=== PATIENT | male | born 1985 | race Caucasian/White ===

== ENCOUNTER 2018-11-19 11:57 | Emergency (ER) | payer OTHER ==
[2018-11-19 12:31] VITALS: RESP 18
[2018-11-19] MEDS ORDERED: SODIUM CHLORIDE 0.9% 1,000 ML IV STA ×2 (13:05)
[2018-11-19] MEDS ORDERED: IBUPROFEN 600 MG TAB PO STA (13:05)
[2018-11-19] MEDS ORDERED: ACETAMINOPHEN TAB 500 MG TAB PO STA (13:05)
--- NOTE | 2018-11-19 13:21 | ED ---
Syncope HPI - General Chief Complaint: Syncope Stated Complaint: Abcess on arm/syncope Time Seen by Provider: 11/19/18 12:48 Source: patient, RN notes reviewed, old records reviewed Mode of arrival: wheelchair Limitations: no limitations - History of Present Illness Initial Comments: This is a 33-year-old male the ER for evaluation presents today for evaluation regards to near syncopal event while in the medication line. The patient does have history of IV drug abuse as a patient from [facility]. Patient not currently on any illicit drugs denies drug or alcohol abuse. Patient complaining for multiple complaints today. Had the near syncopal event while lying felt lightheaded very dizzy very weak using pass out. Very diaphoretic and warm. Patient also complains of left forearm pain pain and tenderness to the left anterior aspect of his left forearm swelling and edema with surrounding redness. Denying specific fever. Again he does have history of IV drug abuse but denies injection in that site MD Complaint: felt faint, almost passed out -: hour(s) Prodromal Symptoms: lightheaded, diaphoresis -: second(s) Witnessed: yes - by bystander Injuries Sustained Associated with Event: None Current Symptoms: lightheaded, weakness Context: standing up, illicit drug use Treatments Prior to Arrival: none - Related Data Home Medications Medication Instructions Recorded Confirmed Acetaminophen [Tylenol 8 Hour] 650 mg PO Q4H PRN 11/19/18 11/19/18 Calcium/Magnesium 1 tab PO TID PRN 11/19/18 11/19/18 Chlorpheniramine Maleate 4 mg PO Q4H PRN 11/19/18 11/19/18 [Chlor-Trimeton] Ibuprofen [Motrin] 600 mg PO Q6H PRN 11/19/18 11/19/18 Mirtazapine [Remeron] 30 mg PO HS 11/19/18 11/19/18 Multivitamins, Thera [Multivitamin 1 tab PO DAILY 11/19/18 11/19/18 (formulary)] Ondansetron HCl [Zofran Oral Soln] 4 mg IM Q6H PRN 11/19/18 11/19/18 Ondansetron HCl [Zofran] 8 mg PO Q6H PRN 11/19/18 11/19/18 Thiamine [Vitamin B-1] 100 mg PO DAILY 11/19/18 11/19/18 cloNIDine HCL [Catapres] 0.1 mg PO Q4H PRN 11/19/18 11/19/18 Previous Rx's Medication Instructions Recorded Cephalexin [Keflex] 500 mg PO Q6HR #40 cap 11/19/18 Sulfamethox-Tmp 800-160Mg [Bactrim 2 tab PO BID #40 tab 11/19/18 DS 800-160 mg] Allergies Allergy/AdvReac Type Severity Reaction Status Date / Time Penicillins Allergy Rash/Hives Verified 11/19/18 12:52 Review of Systems ROS Statement: Those systems with pertinent positive or pertinent negative responses have been documented in the HPI. ROS Other: All systems not noted in ROS Statement are negative. Past Medical History Past Medical History: No Reported History History of Any Multi-Drug Resistant Organisms: None Reported Past Surgical History: Orthopedic Surgery Past Psychological History: No Psychological Hx Reported Smoking Status: Current every day smoker Past Alcohol Use History: None Reported Past Drug Use History: Opiates General Exam Limitations: no limitations General appearance: alert, in no apparent distress Head exam: Present: atraumatic, normocephalic, normal inspection Eye exam: Present: normal appearance, PERRL, EOMI. Absent: scleral icterus, conjunctival injection, periorbital swelling ENT exam: Present: normal exam, mucous membranes moist Neck exam: Present: normal inspection. Absent: tenderness, meningismus, lymphadenopathy Respiratory exam: Present: normal lung sounds bilaterally. Absent: respiratory distress, wheezes, rales, rhonchi, stridor Cardiovascular Exam: Present: regular rate, normal rhythm, normal heart sounds. Absent: systolic murmur, diastolic murmur, rubs, gallop, clicks GI/Abdominal exam: Present: soft, normal bowel sounds. Absent: distended, tenderness, guarding, rebound, rigid Extremities exam: Present: normal inspection, full ROM, normal capillary refill, other (Left upper extremity does have antecubital erythema, tenderness and the mass). Absent: tenderness, pedal edema, joint swelling, calf tenderness Back exam: Present: normal inspection Neurological exam: Present: alert, oriented X3, CN II-XII intact Psychiatric exam: Present: normal affect, normal mood Skin exam: Present: warm, dry, intact, normal color. Absent: rash Course Vital Signs 11/19/18 12:27 Temperature 98.3 F Pulse Rate 77 Respiratory 18 Rate Blood Pressure 91/53 O2 Sat by Pulse 99 Oximetry - Reevaluation(s) Reevaluation #1: 11/19/18 13:21 Medical records reviewed Reevaluation #2: 11/19/18 16:41 is without recurrent syncope here in the ER continues to refuse IV drug abuse and left upper extremity Medical Decision Making - Medical Decision Making 33 male the ER for evaluation near syncopal event, no cause of syncope found here in the ER. does have what appears to be early cellulitis versus ea rly abscess of left upper extremity, no current drainable abscess. Patient can be discharged home on antibiotics return if symptoms continue to worsen - Lab Data Result diagrams: 11/19/18 13:45 11/19/18 13:45 Lab Results 11/19/18 11/19/18 11/19/18 Range/Units 13:45 13:45 13:45 WBC 9.6 (3.8-10.6) k/uL RBC 5.60 (4.30-5.90) m/uL Hgb 15.9 (13.0-17.5) gm/dL Hct 50.1 (39.0-53.0) % MCV 89.5 (80.0-100.0) fL MCH 28.4 (25.0-35.0) pg MCHC 31.7 (31.0-37.0) g/dL RDW 12.8 (11.5-15.5) % Plt Count 266 (150-450) k/uL Neutrophils % 75 % Lymphocytes % 16 % Monocytes % 4 % Eosinophils % 2 % Basophils % 1 % Neutrophils # 7.2 (1.3-7.7) k/uL Lymphocytes # 1.6 (1.0-4.8) k/uL Monocytes # 0.4 (0-1.0) k/uL Eosinophils # 0.2 (0-0.7) k/uL Basophils # 0.1 (0-0.2) k/uL Sodium 140 (137-145) mmol/L Potassium 5.0 (3.5-5.1) mmol/L Chloride 101 (98-107) mmol/L Carbon Dioxide 31 H (22-30) mmol/L Anion Gap 8 mmol/L BUN 12 (9-20) mg/dL Creatinine 0.79 (0.66-1.25) mg/dL Est GFR (CKD-EPI)AfAm >90 (>60 ml/min/1.73 sqM) Est GFR (CKD-EPI)NonAf >90 (>60 ml/min/1.73 sqM) Glucose 84 (74-99) mg/dL Calcium 10.0 (8.4-10.2) mg/dL Phosphorus 5.0 H (2.5-4.5) mg/dL Magnesium 2.2 (1.6-2.3) mg/dL Total Bilirubin 0.4 (0.2-1.3) mg/dL AST 31 (17-59) U/L ALT 29 (21-72) U/L Alkaline Phosphatase 68 (38-126) U/L Creatine Kinase 50 L (55-170) U/L C-Reactive Protein 7.2 (<10.0) mg/L Total Protein 8.0 (6.3-8.2) g/dL Albumin 4.6 (3.5-5.0) g/dL Lipase 80 (23-300) U/L Urine Color Light Yellow Urine Appearance Clear (Clear) Urine pH 8.0 (5.0-8.0) Ur Specific [place] 1.008 (1.001-1.035) Urine Protein Negative (Negative) Urine Glucose (UA) Negative (Negative) Urine Ketones Negative (Negative) Urine Blood Negative (Negative) Urine Nitrite Negative (Negative) Urine Bilirubin Negative (Negative) Urine Urobilinogen <2.0 (<2.0) mg/dL Ur Leukocyte Esterase Negative (Negative) - Radiology Data Radiology results: report reviewed (X-ray of elbow knee chest negative for acute disease, ultrasound left upper extremity antecubital area shows no drainable abscess mild cellulitis developing abscess), image reviewed Disposition Clinical Impression: Vasovagal syncope, Left arm cellulitis Disposition: HOME SELF-CARE Condition: Good Instructions (If sedation given, give patient instructions): Cellulitis (ED) Prescriptions: Sulfamethox-Tmp 800-160Mg [Bactrim DS 800-160 mg] 2 tab PO BID #40 tab Cephalexin [Keflex] 500 mg PO Q6HR #40 cap Is patient prescribed a controlled substance at d/c from ED?: No Referrals: None,Stated [Primary Care Provider] - 1-2 days
[2018-11-19 14:00] LABS: Appearance,Urine Clear (Clear); Bilirubin,Urine Negative (Negative); Blood,Urine Negative (Negative); Color,Urine Light Yellow; Glucose,Urine (UA) Negative (Negative); Ketones,Urine Negative (Negative); Leukocyte Esterase,Urine Negative (Negative); Nitrite,Urine Negative (Negative); Protein,Urine Negative (Negative); Specific Gravity,Urine 1.008 (1.001-1.035); Urobilinogen,Urine <2.0 mg/dL (<2.0)
[2018-11-19 14:09] LABS: Basophils # (A) 0.1 k/uL (0-0.2); Basophils % (A) 1 %; Eosinophils # (A) 0.2 k/uL (0-0.7); Eosinophils % (A) 2 %; HCT 50.1 % (39.0-53.0); HGB 15.9 gm/dL (13.0-17.5); Lymphocytes # (A) 1.6 k/uL (1.0-4.8); Lymphocytes % (A) 16 %; MCH 28.4 pg (25.0-35.0); MCHC 31.7 g/dL (31.0-37.0); MCV 89.5 fL (80.0-100.0); Mean Platelet Volume 7.4; Monocytes # (A) 0.4 k/uL (0-1.0); Monocytes % (A) 4 %; Neutrophils # (A) 7.2 k/uL (1.3-7.7); Neutrophils % (A) 75 %; Platelet Count 266 k/uL (150-450); RDW 12.8 % (11.5-15.5); WBC 9.6 k/uL (3.8-10.6)
[2018-11-19 14:13] LABS: ALT 29 U/L (21-72); AST 31 U/L (17-59); African American GFR (CKD) >90 (>60 ml/min/1.73 sqM); Albumin 4.6 g/dL (3.5-5.0); Alkaline Phosphatase 68 U/L (38-126); Anion Gap 8 mmol/L; Blood Urea Nitrogen 12 mg/dL (9-20); Carbon Dioxide 31 mmol/L (22-30); Chloride 101 mmol/L (98-107); Creatine Kinase 50 U/L (55-170); Glucose 84 mg/dL (74-99); Magnesium 2.2 mg/dL (1.6-2.3); Sodium 140 mmol/L (137-145); Total Bilirubin 0.4 mg/dL (0.2-1.3)
--- NOTE | 2018-11-19 14:23 | XR ---
EXAMINATION TYPE: XR chest 2V DATE OF EXAM: 11/19/2018 COMPARISON: NONE HISTORY: Weakness TECHNIQUE: Frontal and lateral views of the chest are obtained. FINDINGS: Dense nodule is present in the right upper lobe between the anterior first and second rib m easuring approximately 8 mm in size. There is no focal air space opacity, pleural effusion, or pneumo thorax seen. The cardiac silhouette size is within normal limits. The osseous structures are intac t. IMPRESSION: Indeterminate right upper lobe pulmonary nodule, follow-up recommended.
--- NOTE | 2018-11-19 14:24 | XR ---
Left knee HISTORY: Laceration, pain 3 views of the left knee There is mild loss of joint space in the medial compartment. No radiopaque foreign body. Alignment an d bone mineralization are normal. No evident joint effusion. Suspect soft tissue swelling the suprapa tellar region. Enthesopathy present at the insertion of the quadriceps tendon, origin of the patellar tendon. Calcification present in the patellar tendon proximally. IMPRESSION: Soft tissue swelling.
[2018-11-19 14:25] LABS: C Reactive Protein 7.2 mg/L (<10.0)
--- NOTE | 2018-11-19 14:26 | XR ---
EXAMINATION TYPE: XR elbow complete LT DATE OF EXAM: 11/19/2018 COMPARISON: NONE HISTORY: 33-year-old male with pain from laceration TECHNIQUE: 3 views FINDINGS: An IV is in place antecubital fossa. Some medial sided soft tissue swelling. Some fragmented spurs at the olecranon. No elbow joint effusion. No acute fracture, subluxation, dislocation seen. IMPRESSION: Medial soft tissue swelling. Age-indeterminate fragments of a tiny olecranon spur. Correlate for any pinpoint tenderness here. Otherwise, no acute osseous abnormality seen.
--- NOTE | 2018-11-19 15:48 | US ---
EXAMINATION TYPE: US extremity nonvasc mass LT DATE OF EXAM: 11/19/2018 COMPARISON: NONE CLINICAL HISTORY: pain. Left upper forearm palpable x 1.5 weeks ago. Patient states cutting his arm on a windshield. Area of concern scanned. Edema channels noted. Complex lesion visualized = 2.5 x 2.6 x 1.1 cm. Prominent lymph node appearing lesion visualized superior to lesion - 0.8 x 0.7 x 0.4 cm. IMPRESSION: Findings likely represent local phlegmon at the site of the clinical abnormality, there may be associated small abscess, difficult to exclude foreign body
[2018-11-19 17:13] VITALS: BP 105/69; PULSE 76; TEMP 97.9
== END 2018-11-19 17:13 | disposition home or self-care (01) ==
LOC: EC 11:57
DX: L03.114 Cellulitis of left upper limb (principal); R55 Syncope and collapse; F17.200 Nicotine dependence, unspecified, uncomplicated; Z79.899 Other long term (current) drug therapy; Z88.0 Allergy status to penicillin
CPT/HCPCS: 36415; 71046; 80053; 81003; 82550; 83690; 83735; 84100; 85025; 86140; 96360; 96361; 99285